=== PATIENT | female | born 1980 | race Caucasian/White ===

== ENCOUNTER → 2016-09-27 | Outpatient (CLI) | payer OTHER ==
[~2016-09-27] MED LIST: PREN1TAB52 PO
== END | disposition home or self-care (01) ==
LOC: EMPHLTH 10:46
PROVIDERS: ATTEND Internal Medicine
DX: R76.11 Nonspecific reaction to tuberculin skin test without active tuberculosis (principal)

== ENCOUNTER 2017-10-20 00:31 | Emergency (ER) | payer OTHER ==
[~2017-10-20] VITALS: Ht 160 cm; Wt 76.4 kg
[2017-10-20] MEDS ORDERED: METHOCARBAMOL 500 MG TABLET PO ONE (01:45)
[2017-10-20] MEDS ORDERED: TraMADol HCL 50 MG TABLET PO ONE (01:45)
[2017-10-20 01:54] VITALS: BP 128/89
== END 2017-10-20 01:55 | disposition home or self-care (01) ==
LOC: EMS 00:31
DX: S39.012A Strain of muscle, fascia and tendon of lower back, initial encounter (principal); X50.0XXA Overexertion from strenuous movement or load, initial encounter; Y93.89 Activity, other specified; Y92.89 Other specified places as the place of occurrence of the external cause; Y99.8 Other external cause status
CPT/HCPCS: 99283

== ENCOUNTER 2019-11-22 07:00 | Emergency (ER) | payer OTHER ==
[~2019-11-22] VITALS: Ht 160 cm; Wt 77.3 kg
[2019-11-22 10:37] VITALS: BP 125/89
== END 2019-11-22 10:37 | disposition home or self-care (01) ==
LOC: EMS 07:00
DX: R42 Dizziness and giddiness (principal); Z20.828 Contact with and (suspected) exposure to other viral communicable diseases
CPT/HCPCS: 93005; 99284; U0003; Z7502

== ENCOUNTER → 2020-09-25 | Outpatient (CLI) | payer OTHER | END | disposition home or self-care (01) | LOC: RADPV 12:03 | PROVIDERS: ATTEND Internal Medicine | DX: R76.11 Nonspecific reaction to tuberculin skin test without active tuberculosis (principal) | CPT/HCPCS: 71045 ==

== ENCOUNTER 2021-10-07 11:29 | Emergency (ER) | payer OTHER ==
[~2021-10-07] VITALS: Ht 160 cm; Wt 72.7 kg
[2021-10-07 11:48] VITALS: BP 125/86
[2021-10-07 12:16] LABS: COVID AG,FIA SOURCE NASAL SWAB
== END 2021-10-07 14:05 | disposition home or self-care (01) ==
LOC: EMS 11:31
DX: U07.1 COVID-19 (principal)
CPT/HCPCS: 99283; 87426; U0003; C9803

== ENCOUNTER → 2023-11-18 | Outpatient (CLI) | payer OTHER ==
[2023-11-18 08:08] LABS: ALANINE AMINOTRANSFERASE 20 U/L (12-78); ALBUMIN 3.5 g/dL (3.4-5.0); ALKALINE PHOSPHATASE 86 U/L (46-116); ANION GAP 11 mmol/L (8-16); ASPARTATE AMINOTRANSFERASE 14 U/L (15-37); BILIRUBIN,TOTAL 0.2 mg/dL (0.1-1.0); CALCIUM, TOTAL 8.5 mg/dL (8.8-10.5); CARBON DIOXIDE 21 mmol/L (22-29); CHLORIDE 105 mmol/L (98-107); CHOL/HDL RATIO 3.6 (3.9-5.7); CHOLESTEROL 157 mg/dL (131-200); CREATININE 0.69 mg/dL (0.60-1.30); GLOMERULAR FILTR. RATE CALC > 60 mL/min (>60); GLUCOSE,RANDOM 128 mg/dL (70-110); HDL CHOLESTEROL 44 mg/dL (40-60); LDL CHOL (CALC.) 93 mg/dL (0-130); POTASSIUM 4.1 mmol/L (3.5-5.1); SODIUM SERUM 137 mmol/L (136-145); THYROID STIMULATING HORMONE 2.19 uIU/mL (0.36-3.74); TOTAL PROTEIN, SERUM 7.6 g/dL (6.4-8.2); TRIGLYCERIDES 98 mg/dL (15-150); UREA NITROGEN, BLOOD 11 mg/dL (7-18)
[2023-11-18 08:15] LABS: HEMOGLOBIN A1C 6.2 % (3.8-5.6)
[2023-11-18 09:15] LABS: FOLATE SERUM 17.9 ng/mL (5.4-)
== END | disposition home or self-care (01) ==
LOC: LABMN 07:19
PROVIDERS: ATTEND Internal Medicine Geriatric Medicine
DX: Z00.00 Encounter for general adult medical examination without abnormal findings (principal)
CPT/HCPCS: 80053; 80061; 82306; 82607; 82746; 83036; 84443

== ENCOUNTER 2024-12-10 11:14 | Emergency (ER) | payer OTHER ==
[~2024-12-10] VITALS: Ht 160 cm; Wt 71.4 kg
[2024-12-10 11:25] VITALS: BP 137/81; PULSE 84; RESP 18; TEMP 98.1; O2SAT 100
[2024-12-10 12:01] LABS: PLATELET COUNT (AUTO) 484 K/uL (150-450); RED BLOOD CELL COUNT(AUTO) 4.54 MIL/uL (4.00-5.20); RED CELL DISTRIBUTION WIDTH 20.5 % (11.5-14.5); WHITE BLOOD COUNT (AUTO) 5.9 K/uL (4.5-11.0)
[2024-12-10 12:21] LABS: RBC MORPHOLOGY COMMENT ABNORMAL RBC MORPH
== END 2024-12-10 17:53 | disposition home or self-care (01) ==
LOC: EMS 11:14
DX: H11.32 Conjunctival hemorrhage, left eye (principal); D50.9 Iron deficiency anemia, unspecified; N92.0 Excessive and frequent menstruation with regular cycle; Z91.048 Other nonmedicinal substance allergy status
CPT/HCPCS: 85025; 99283